=== PATIENT | female | born 1990 ===

== ENCOUNTER 2017-12-16 17:35 | Emergency (ER) | payer MEDICAID ==
[2017-12-16 18:17] VITALS: BMI 32.1
[2017-12-16 18:26] LABS: SQUAMOUS EPITHIAL 7 /hpf (0-5); URINE BILIRUBIN NEGATIVE (NEGATIVE); URINE BLOOD NEGATIVE (NEGATIVE); URINE CALCIUM OXALATE CRYSTALS MOD /hpf (<OCC); URINE CLARITY Hazy (Clear); URINE COLOR Yellow (YELLOW); URINE GLUCOSE (UA) NORMAL (Normal); URINE LEUKOCYTE ESTERASE NEG Leu/uL (Negative); URINE PROTEIN NEGATIVE (NEGATIVE); URINE UROBILINOGEN NORMAL mg/dL (0.2-1.0)
--- NOTE | 2017-12-16 19:55 | OBHP ---
Datetime: 12/16/2017 19:15 IP Adm Impression: , intrauterine ; No Active Labor IP Chief Complaint Other: Sharp, short and painful pains on R Lower abdomen upon movement Vaginal irritation after intercourse IP Admit Plan: Observation/Evaluation Admit Comment, IP Provider: 27 yo female with an IUP at 23.2 weeks and present with c/o of sharp and short pulling on her right lower abdomen with movement and very painful. + FM Pt works on her feet all day Most likely Round Ligament pains Cervix closed and long. Mild thick whittish vaginal discharge and c/w Emer[place] UA with Dehydration only and advised to increase po water intake May use Monistat OTC for 5 days IV at HS Advised to by an abdominal support belt and to use it daily Will f/up with her doctor on next appointment on 12/18 or prior if needed Discharge home in [place] and Satisfactory condition Pelvic Type - PN: Adequate Extremities - PN: Normal Abdomen - PN: Normal Back - PN: Normal Breast - PN: Not Done Lungs - PN: Normal Heart - PN: Normal Thyroid - PN: Normal Neurologic - PN: Normal HEENT - PN: Normal General - PN: Normal FHR - Baseline A Provider: 130 Membranes, Provider: Intact Contraction Comments Provider: 0 Comments, ACOG Physical Exam: No abdominal masses or tenderness on palpation Gestation - Est Wks by US: 23.0 EGA AdmitDate IP: 23.2 Vital Signs Provider: Reviewed; Within Normal Limits IP Chief Complaint: Maternal discomfort; Other Dilatation, Provider: 0 Effacement, Provider: 0 Station, Provider: high Genitourinary Exam: Normal DTRs - PN: Normal
[2017-12-16 23:11] VITALS: BP 117/72; PULSE 77; RESP 18; TEMP 98.6; O2SAT 99
== END 2017-12-16 19:00 | disposition home or self-care (01) ==
LOC: C.EROB 17:35
DX: O26.892 Other specified pregnancy related conditions, second trimester (principal); R10.31 Right lower quadrant pain; Z3A.23 23 weeks gestation of pregnancy